=== PATIENT | female | born 1945 | race Caucasian/White ===

== ENCOUNTER 2023-09-05 06:23 | Day surgery (SDC) | payer OTHER, SELFPAY ==
[2023-09-05] VITALS (10 sets, daily range): BP systolic 105–130; BP diastolic 50–82; BMI 26.8
[2023-09-05 08:13] LABS: INR 1.66; PT 19.8 Sec (11.4-14.6)
--- NOTE | 2023-09-05 09:30 | ITS.CL.PACE ---
[facility] - Pacemaker Implant
Pacemaker Implant
Procedure Report:
PACEMAKER GENERATOR CHANGE
Date of Procedure: September 05, 2023
Primary metal trades instructor: Dr Agata Lopez
PROCEDURES:
1. Removal of dual chamber PPM generator at [facility]
2. Implant of new dual chamber PPM generator
INDICATION FOR PROCEDURE:
1. PPM generator at [facility]
2. Non-reversible symptomatic bradycardia due to sinus node dysfunction. Also has history of atrial tachyarrhythmia including atrial fibrillation and is on warfarin.
The patient was prepped and draped in sterile fashion. Lidocaine with epi was used for local anesthesia. An incision was made along the previous incision at the left prepectoral area and the device and leads were carefully dissected from the
pocket. Hemostasis was obtained with electrocautery. The leads were from the device header and tested using an external analyzer. The pocket was liberally irrigated with antibiotic solution. Once testing (see below) showed adequate and
stable function, the leads were connected to the generator header and the leads and generator were placed within the pocket. The pocket was closed in the typical fashion.
EXPLANTED PPM GENERATOR:
Medtronic
IMPLANTED PPM GENERATOR:
Medtronic [id number], SN [id number]
RETAINED LEADS:
Existing RA lead: Medtronic [id number], serial number [id number]
Existing RV lead: Medtronic [id number], [id number]
DEVICE TESTING:
Sensing: RA atrial tachycardia, RV 6 mV
Capture: RA atrial tachycardia, RV 0.75 V @ 0.4ms
Ohms: RA 399 ohms, RV 418 ohms
FINAL PROGRAMMING
Art Pacing: MVP 50-100 bpm
COMPLICATIONS:
None
CONCLUSIONS:
1. Successful explant of dual chamber permanent pacemaker
2. Successful implant of dual chamber permanent pacemaker
RECOMMENDATIONS:
Can resume warfarin today
In-Office wound check in 7-10 days.
Copy to: Dr Agata Lopez
== END 2023-09-05 10:30 | disposition home or self-care (01) ==
LOC: CATH 06:23
PROVIDERS: Nurse Practitioner; ATTENDING PHYSICIAN Internal Medicine Cardiovascular Disease; FAMILY PHYSICIAN Family Medicine; OTHER PHYSICIAN Internal Medicine Cardiovascular Disease
DX: Z45.010 Encounter for checking and testing of cardiac pacemaker pulse generator [battery] (principal); I49.5 Sick sinus syndrome; I48.91 Unspecified atrial fibrillation; Z79.01 Long term (current) use of anticoagulants
CPT/HCPCS: 33228; 85610; C1785